=== PATIENT | female | born 1975 | race Caucasian/White ===

== ENCOUNTER 2020-07-04 11:18 | Emergency (ER) | payer SELFPAY ==
[~2020-07-04] VITALS: Ht 160 cm; Wt 62.0 kg
[2020-07-04] MEDS ORDERED: IBUP-1653 PO (11:33)
[2020-07-04] MEDS ORDERED: KETOROLAC 30MG/ML VIAL IM ONE (13:15)
[2020-07-04] MEDS ORDERED: DIPH25TA26 MT (13:16)
[2020-07-04] MEDS ORDERED: IBUP-2029 MT (13:16)
[2020-07-04 13:38] VITALS: BP 125/71
== END 2020-07-04 13:39 | disposition home or self-care (01) ==
LOC: ER 11:18
DX: R51.9 Headache, unspecified (principal); F41.9 Anxiety disorder, unspecified; Z87.442 Personal history of urinary calculi; Z90.49 Acquired absence of other specified parts of digestive tract; Z79.899 Other long term (current) drug therapy
CPT/HCPCS: 81025; 96372; 99283; J1885